=== PATIENT | female | born 1950 | race Caucasian/White ===

== ENCOUNTER 2018-12-16 01:34 | Outpatient (CLI) | payer MEDICARE, BC ==
[2018-12-16 15:29] LABS: #Eosinphils 0.1 thou/uL (0.0-0.7); #Lymphocytes 1.9 thou/uL (1.20-3.40); #Monocytes 0.6 thou/uL (0.11-0.59); #Neutrophils 3.6 thou/uL (1.40-6.50); %Basophils 0.8 % (0.0-1.0); %Eosinophils 0.9 % (0.0-10.0); %Lymphocytes 30.3 % (21.0-51.0); %Monocytes 9.4 % (0.0-10.0); %Neutrophils 58.5 % (42.0-75.0); Hemoglobin 14.4 g/dL (12.0-16.0); Mean Corpuscular HGB CONC 33.3 g/dL (32.0-36.0); Mean Corpuscular Hemoglobin 30.7 pg (27.0-31.0); Mean Corpuscular Volume 92.3 fL (78.0-98.0); Mean Platelet Volume 9.2 fL (7.4-10.4); Platelet Count 208 thou/uL (130-400); RBC Distribution Width 12.6 % (11.5-14.5); Red Blood Cell (RBC) Count 4.69 mill/uL (4.20-5.40); White Blood Cell (WBC) Count 6.1 thou/uL (4.8-10.8)
[2018-12-16 15:31] LABS: Bilirubin Negative (Negative); Blood, Urine Negative (Negative); Clarity CLOUDY (Clear); Glucose, Urine (Dipstick) Negative (Negative); Leukocyte Negative (Negative); Nitrite Positive (Negative); Protein, Urine (Dipstick) Negative (Neg-Trace); Urobilinogen 0.2 mg/dL (0.2-1.0)
[2018-12-16 15:38] LABS: Prothrombin Time 13.6 SEC (12.0-14.7)
[2018-12-16 15:51] LABS: Anion Gap 12 mmol/L (10-20); BUN (Urea Nitrogen) 19 mg/dL (9.8-20.1); Calc. Creatinine Clearance 0 mL/min (70-130); Calcium 9.2 mg/dL (7.8-10.44); Carbon Dioxide 24 mmol/L (23-31); Chloride 108 mmol/L (98-107); Estimated GFR-MDRD 61; Glucose 76 mg/dL (80-115); Potassium 3.9 mmol/L (3.5-5.1); Sodium 140 mmol/L (136-145)
[2018-12-16 16:29] LABS: RBC/HPF None Seen HPF (0-3); Squamous Epithelial 0-3 HPF (0-3); WBC/HPF 0-3 HPF (0-3)
[2018-12-16 16:30] LABS: Bacteria/HPF 2+ HPF (None Seen); Hyaline Casts/LPF NONE SEEN LPF (0-3 Hyaline)
== END 2018-12-16 01:35 | disposition home or self-care (01) ==
LOC: LABBT 01:34
PROVIDERS: ATTEND Orthopaedic Surgery
DX: Z01.818 Encounter for other preprocedural examination (principal); M17.0 Bilateral primary osteoarthritis of knee
CPT/HCPCS: 80048; 81001; 85025; 85610; 87081; 87086; 93005; 93010

== ENCOUNTER 2018-12-20 05:39 | Inpatient (IN) | payer MEDICARE, BC ==
--- NOTE | 2018-12-15 18:52 | HP ---
HISTORY OF PRESENT ILLNESS: The patient is a 68-year-old female with a several year history of progressive problems with both knees, left greater than right. She has had progressive symptoms despite rest, restriction of activities, use of anti-inflammatory medications, and previous cortisone injections. She has had no recent injury, but has had several hard falls over the past 10 years. She is now having problems with day-to-day activities including walking, getting dressed, and sleeping. PAST MEDICAL HISTORY: The patient has history of hypothyroidism secondary to previous hyperthyroidism treated with radiation, varicose veins, and previous foot surgery. CURRENT MEDICATIONS: Include estradiol and levothyroxine. ALLERGIES: SHE HAS NO KNOWN ALLERGIES. FAMILY HISTORY: Otherwise unremarkable. SOCIAL HISTORY: Otherwise unremarkable. REVIEW OF SYSTEMS: Otherwise unremarkable. PHYSICAL EXAMINATION: GENERAL: This is a healthy, heavyset female. HEENT: Unremarkable. NECK: Supple. CHEST: Clear. HEART: Regular rate and rhythm. ABDOMEN: Soft and nontender. PELVIC: Deferred. RECTAL: Deferred. BREAST: Deferred. EXTREMITIES: Pertinent findings related to both knees. There is mild varus deformity, left greater than right. There are scattered venous varicosities. There is tenderness over the medial joint line bilaterally, left greater than right. Range of motion is 0 to 120 degrees bilaterally. There is slight crepitus, left greater than right. There is no instability. NEUROVASCULAR: Intact. DIAGNOSTIC STUDIES: X-rays of both knees reveal [id number] collapse medially on the left knee and medial and lateral joint space narrowing on the right with still some joint space remaining. IMPRESSION: 1. Degenerative arthritis, both knees left symptomatic more than right. 2. History of thyroid replacement. PLAN: Left total knee replacement. The nature of the surgery, length of recovery, and potential complications such as infection, loss of motion, incomplete relief, delayed wound healing, neurovascular injury, thromboembolic phenomena, possible transfusion, and need for revision have been discussed in detail. Job ID: [id number]
[2018-12-16 12:35] VITALS: BMI 42.7
[2018-12-20] MEDS ORDERED: Midazolam HCl 2 mg/2 ml Vial ONE ×2 (06:19→06:21)
[2018-12-20] MEDS ORDERED: Fentanyl 100 MCG/2 ML VIAL ONE ×6 (06:19→10:28)
[2018-12-20] MEDS ORDERED: Sodium Chloride 0.9% 100 ML ONE (06:30)
[2018-12-20] MEDS ORDERED: Tranexamic Acid 1,000 MG/10 ML VIAL ONE ×2 (06:30→09:40)
[2018-12-20] MEDS ORDERED: Tranexamic Acid 1,000 MG in Sodium Chloride 0.9% 100 ML IVPB SCH ×4 (06:30→13:00)
[2018-12-20] MEDS ORDERED: CEFAZOLIN 3 GM in Sodium Chloride 0.9% 100 ML IVPB SCH (06:30)
[2018-12-20] MEDS ORDERED: Bupivacaine/Epinephrine 0.25% 30 ML VIAL ONE (06:43)
[2018-12-20] MEDS ORDERED: Ondansetron PF 4 MG/2 ML Vial IVP PRN ×3 (07:37→12:43)
[2018-12-20] MEDS ORDERED: traMADol HCl 50 MG TAB PO PRN ×3 (07:37→12:43)
[2018-12-20] MEDS ORDERED: Zolpidem Tartrate 5 MG TAB PO PRN ×3 (07:37→12:43)
[2018-12-20] MEDS ORDERED: HYDROcodone/Acetaminophen 10/325 mg Tablet PO PRN ×4 (07:37→12:43)
[2018-12-20] MEDS ORDERED: Promethazine HCl 25 MG/ML VIAL IM PRN ×3 (07:37→10:55)
[2018-12-20] MEDS ORDERED: Ropivacaine HCl/PF 250 ML in Premix Bag 1 BAG NERVE BLCK SCH (07:37)
[2018-12-20] MEDS ORDERED: Fentanyl 100 MCG/2 ML VIAL IV PRN (07:38)
[2018-12-20] MEDS ORDERED: Ondansetron HCl/PF 4 MG/2 ML Vial IVP PRN (09:38)
[2018-12-20] MEDS ORDERED: Promethazine HCl 25 MG/ML VIAL SLOW IVP PRN ×2 (09:38→12:43)
--- NOTE | 2018-12-20 09:57 | RAD ---
2 views left knee: 12/20/2018 COMPARISON: None HISTORY: Status post left knee arthroplasty FINDINGS: There is postoperative fluid and gas anterior to the patella and within the suprapatellar b ursa. Tibial and femoral components appear unremarkable. No fracture or evidence of dislocation. There is postoperative change involving the posterior aspect of the patella. IMPRESSION: Radiographic evidence of recent left total knee arthroplasty.
[2018-12-20] MEDS ORDERED: Ketorolac Tromethamine 30 MG/ML VIAL ONE (10:21)
[2018-12-20] MEDS ORDERED: Acetaminophen 1,000 MG in Premix Bag 1 BAG IVPB SCH (10:30)
--- NOTE | 2018-12-20 10:51 | OP ---
DATE OF PROCEDURE: 12/20/2018 FLORAL DECORATOR: Haley Amaya PA-C ANESTHESIA: General plus adductor canal and sciatic nerve blocks. PREOPERATIVE DIAGNOSIS: Degenerative arthritis, left knee. POSTOPERATIVE DIAGNOSIS: Degenerative arthritis, left knee. PROCEDURE PERFORMED: Left total knee replacement with computer-assisted navigation with cemented Farideh Triathlon components (#5 femoral component, #4 primary tibial base plate with 11 mm CS plastic insert, and all plastic A32 patellar component). DESCRIPTION OF PROCEDURE: After satisfactory anesthesia was induced in supine position, sequential compression device was placed on the nonoperative leg throughout the procedure. The left leg was then prepped and draped in a routine sterile fashion. The leg was elevated and exsanguinated with an Esmarch bandage. The tourniquet was inflated to 350 mmHg. A gently curved medial parapatellar incision was made, carried down to the subcutaneous tissues and bleeding points controlled with the Bovie cautery. Medial parapatellar arthrotomy was performed of the patella, this was carried laterally and portion of the fat pad were excised for exposure. There was marked degenerative arthritis in the knee, especially medially with large areas of exposed bone. Meniscal remnants and osteophytes were removed. Using the [employer] pinless navigation system and the appropriate guides, the distal femoral and proximal tibial articular surfaces were excised to accept the trial components. It was felt that #5 femoral component, #4 tibial base plate with 11 mm CS plastic insert gave appropriate size, fit, stability, and correction of the preoperative deformity. The patellar articular surface was excised to accept an all plastic A32 patellar component. There was good range of motion and good patellar tracking. The trial components were removed. The knee was copiously irrigated with pulsatile lavage. The bony surface was thoroughly cleaned and dried. The permanent components were then cemented in a single stage using one package of cement premixed with 1 g of tobramycin powder. Excess cement was removed. There was again good fit and stability of the components. The knee was then copiously irrigated. The skin was then injected with 30 mL of 0.25% Marcaine with epinephrine. The medial retinaculum and quadriceps mechanism was closed with interrupted #2 Vicryl and a running #2 Quill. Subcutaneous tissues were closed with a running 0 Quill suture and the skin closed with running subcuticular 3-0 Monoderm and SurgiSeal skin adhesive. Sterile bulky compressive dressing was applied. The tourniquet deflated after 89 minutes. The foot promptly pinked up, and a sequential compression device was placed on the operated leg. She was awakened and taken to recovery room in stable condition. There were no apparent intraoperative complications. ESTIMATED BLOOD LOSS: Less than 100 mL. Job ID: [id number]
[2018-12-20] MEDS ORDERED: diphenhydrAMINE 50 MG/ML VIAL IM/IV PRN (10:55)
[2018-12-20] MEDS ORDERED: diphenhydrAMINE 25 MG CAP PO PRN ×2 (10:55→12:43)
[2018-12-20] MEDS ORDERED: fentaNYL Citrate/PF 2,000 MCG in Sodium Chloride 0.9% 60 ML IV PRN (10:55)
[2018-12-20] MEDS ORDERED: Naloxone HCl 0.4 mg/ml Vial IV PRN (10:55)
[2018-12-20] MEDS ORDERED: Ketorolac Tromethamine 30 MG/ML VIAL IVP SCH ×4 (12:00→16:30)
[2018-12-20] MEDS ORDERED: Fentanyl 100 MCG/2 ML VIAL SLOW IVP PRN ×2 (12:43)
[2018-12-20] MEDS ORDERED: Acetaminophen 325 MG TAB PO PRN (12:43)
[2018-12-20] MEDS: CEFAZOLIN 3 GM in Premix Bag 1 BAG IVPB SCH ×2 (14:26→21:33)
[2018-12-20] MEDS: Sodium Chloride 0.9% 1,000 ML IV SCH ×2 (14:27→21:53)
[2018-12-20] MEDS: Ketorolac Tromethamine 30 MG/ML VIAL IVP SCH ×2 (17:40→23:19)
[2018-12-20] MEDS: Ferrous Gluconate 324 MG TAB PO SCH (20:27)
[2018-12-20] MEDS: Aspirin 81 mg Enteric Coated Tablet PO SCH (20:27)
[2018-12-20] MEDS: Senokot S 8.6-50 MG TAB PO SCH (20:27)
--- NOTE | 2018-12-21 01:07 | CON ---
DATE OF CONSULTATION: 12/20/[address] Hallman for medical management. HISTORY OF PRESENT ILLNESS: The patient is a 68-year-old female, who is freshly postop left knee replacement for degenerative joint disease that has failed conservative therapy. The patient is doing amazingly well with no significant pain and no post anesthesia affect at the moment. PAST MEDICAL HISTORY: Notable for tubal ligation in 1979, foot surgery in the s. She had some cosmetic surgery related to some exophthalmos of the left eye. The patient had a history of hyperthyroidism treated with radioiodine ablation resulting in chronic hypothyroidism. She had the above-mentioned associated exophthalmos of the left eye, which interestingly occurred about 5 years after her hyperthyroidism. FAMILY HISTORY: Mother had some coronary artery disease, myelodysplastic syndrome, and thyroid disease. Father had emphysema. SOCIAL HISTORY: The patient occasionally drinks minimal alcohol. Quit smoking in . Denies drug use. She is . She is full code and her would be her surrogate decision maker should that become necessary. HOME MEDICATIONS: 1. Levothyroxine 125 mcg daily. 2. Estradiol vaginal application. 3. Ibuprofen p.r.n. 4. Acetaminophen p.r.n. ALLERGIES: NONE. PHYSICAL EXAMINATION: VITAL SIGNS: Temperature 97.6, pulse 60, respirations 18, O2 saturation 97% on room air, BP 121/70. GENERAL APPEARANCE: Age-appropriate female, in no distress. Awake, alert, oriented, pleasant, and cooperative. HEENT: PERRL. No acute lesions. NECK: Supple and symmetric. No lymphadenopathy, JVD, or bruits. HEART: Regular rate and rhythm. No murmurs, gallops, or rubs. LUNGS: Clear to auscultation bilaterally. No wheezes or rales. ABDOMEN: Soft, nontender, and nondistended. Positive bowel sounds. No masses. No organomegaly. EXTREMITIES: No cyanosis, clubbing, or edema. IMPRESSION AND PLAN: 1. Degenerative joint disease, postop total left knee replacement. 2. Hypothyroidism, iatrogenic secondary to radioiodine ablation. Treatment for prior hyperthyroidism. The patient is back on her usual home dose of Synthroid, appears to be with that. 3. The patient appears to be medically stable. We will follow at a distance. Job ID: [id number]
[2018-12-21 04:39] LABS: Hemoglobin 11.7 g/dL (12.0-16.0); Mean Corpuscular HGB CONC 33.3 g/dL (32.0-36.0); Mean Corpuscular Hemoglobin 30.6 pg (27.0-31.0); Platelet Count 164 thou/uL (130-400); RBC Distribution Width 12.4 % (11.5-14.5); Red Blood Cell (RBC) Count 3.83 mill/uL (4.20-5.40); White Blood Cell (WBC) Count 10.4 thou/uL (4.8-10.8)
[2018-12-21] MEDS: Ketorolac Tromethamine 30 MG/ML VIAL IVP SCH ×4 (05:31→23:46)
[2018-12-21] MEDS: Levothyroxine Sodium 125 MCG TAB PO SCH (05:31)
[2018-12-21] MEDS: Aspirin 81 mg Enteric Coated Tablet PO SCH ×2 (08:08→21:09)
[2018-12-21] MEDS: Ferrous Gluconate 324 MG TAB PO SCH ×2 (08:08→21:09)
[2018-12-21] MEDS: Multivitamin W/ Minerals 1 TAB PO SCH (08:08)
[2018-12-21] MEDS: Senokot S 8.6-50 MG TAB PO SCH ×2 (08:08→21:09)
[2018-12-21] MEDS: Sodium Chloride 0.9% 1,000 ML IV SCH ×2 (08:17→20:03)
[2018-12-21] MEDS ORDERED: Estradiol 0.01% Vaginal Cream 42.5 gm Tube VAG SCH (09:00)
[2018-12-21] MEDS ORDERED: HYDROcodone/Acetaminophen 10/325 mg Tablet PO PRN (10:42)
[2018-12-21] MEDS ORDERED: traMADol HCl 50 MG TAB PO PRN ×2 (10:43)
[2018-12-21] MEDS ORDERED: Fentanyl 100 MCG/2 ML VIAL SLOW IVP PRN (10:43)
[2018-12-21] MEDS: HYDROcodone/Acetaminophen 10/325 mg Tablet PO PRN (21:10)
[2018-12-22] MEDS: Sodium Chloride 0.9% 1,000 ML IV SCH (03:17)
[2018-12-22] MEDS: Levothyroxine Sodium 125 MCG TAB PO SCH (05:41)
[2018-12-22] MEDS: Ketorolac Tromethamine 30 MG/ML VIAL IVP SCH ×2 (05:42→12:34)
[2018-12-22] MEDS: Ferrous Gluconate 324 MG TAB PO SCH (08:25)
[2018-12-22] MEDS: Aspirin 81 mg Enteric Coated Tablet PO SCH (08:25)
[2018-12-22] MEDS: Multivitamin W/ Minerals 1 TAB PO SCH (08:26)
[2018-12-22] MEDS: Senokot S 8.6-50 MG TAB PO SCH (08:26)
[2018-12-22 11:38] VITALS: BP 122/68; TEMP 98.4
[2018-12-22] MEDS: HYDROcodone/Acetaminophen 10/325 mg Tablet PO PRN (14:09)
== END 2018-12-22 15:03 | disposition home or self-care (01) | DRG 470 ==
LOC: SDC 05:39 → SJJU 07:10
PROVIDERS: ADMIT Orthopaedic Surgery; ATTEND Orthopaedic Surgery
PROC: 0SRD0J9 Replacement of Left Knee Joint with Synthetic Substitute, Cemented, Open Approach (ICD-10-PCS; principal; 2018-12-20)
DX: M17.0 Bilateral primary osteoarthritis of knee (principal); E03.9 Hypothyroidism, unspecified; Z79.899 Other long term (current) drug therapy; Z98.51 Tubal ligation status; Z87.891 Personal history of nicotine dependence
CPT/HCPCS: 36415; 85027; 86850; 86900; 86901; C1713; C1776; J0131; J0690; J1885; J2250; J2795; J3010; J3370; J3490; J7050

== ENCOUNTER 2021-01-14 11:15 | Inpatient (IN) | payer MEDICARE, BC ==
[2021-02-15 14:05] VITALS: BMI 42.0
[2021-02-19] MEDS ORDERED: Tranexamic Acid 1,000 MG/10 ML VIAL ONE (07:58)
[2021-02-19] MEDS ORDERED: VANCOMYCIN 2 GRAM/400 ML BAG 2 GM in Premix Bag 1 BAG IVPB SCH ×3 (08:15→20:00)
[2021-02-19] MEDS ORDERED: Fentanyl 100 MCG/2 ML VIAL ONE ×4 (08:19→11:58)
[2021-02-19] MEDS ORDERED: Midazolam HCl 2 mg/2 ml Vial ONE (08:19)
[2021-02-19] MEDS ORDERED: Bupivacaine 0.25% HCL 30 ML VIAL ONE (09:14)
[2021-02-19] MEDS ORDERED: EPINEPHrine 1 MG/ML AMP ONE (09:14)
[2021-02-19] MEDS ORDERED: Ropivacaine 2% HCl/PF (20 MG/10 ML VIAL) ONE (09:39)
[2021-02-19] MEDS ORDERED: Lidocaine 1% PF 5 ML VIAL ONE (09:39)
[2021-02-19] MEDS ORDERED: Ketorolac Tromethamine 30 MG/ML VIAL ONE (09:39)
[2021-02-19] MEDS ORDERED: Ondansetron PF 4 MG/2 ML Vial ONE (09:39)
[2021-02-19] MEDS ORDERED: ePHEDrine 50 MG/ML VIAL ONE (09:39)
[2021-02-19] MEDS ORDERED: Dexamethasone 20 MG/5 ML VIAL ONE (09:39)
[2021-02-19] MEDS ORDERED: Bupivacaine HCl 0.5%/Epinephrine 1:200,000/PF 30 ml Vial ONE (09:39)
[2021-02-19] MEDS ORDERED: PROPOFOL 200 MG/20 ML VIAL ONE (09:39)
[2021-02-19] MEDS ORDERED: Promethazine HCl 25 MG/ML VIAL IM PRN ×3 (10:31→11:53)
[2021-02-19] MEDS ORDERED: Ondansetron HCl/PF 4 MG/2 ML Vial IVP PRN (10:31)
[2021-02-19] MEDS ORDERED: Promethazine HCl 25 MG/ML VIAL IVPB PRN (10:31)
[2021-02-19] MEDS ORDERED: Fentanyl 100 MCG/2 ML VIAL IV PRN (11:21)
[2021-02-19] MEDS ORDERED: Zolpidem Tartrate 5 MG TAB PO PRN ×2 (11:30→11:53)
[2021-02-19] MEDS ORDERED: Ondansetron PF 4 MG/2 ML Vial IVP PRN ×2 (11:30→11:53)
[2021-02-19] MEDS ORDERED: Ropivacaine HCl/PF 250 ML in Premix Bag 1 BAG NERVE BLCK SCH (11:30)
[2021-02-19] MEDS ORDERED: HYDROcodone/Acetaminophen 10/325 mg Tablet PO PRN ×3 (11:30→11:53)
[2021-02-19] MEDS ORDERED: traMADol HCl 50 MG TAB PO PRN ×3 (11:30→11:53)
[2021-02-19] MEDS ORDERED: Fentanyl 100 MCG/2 ML VIAL SLOW IVP PRN ×2 (11:53)
[2021-02-19] MEDS ORDERED: Acetaminophen 325 MG TAB PO PRN (11:53)
[2021-02-19] MEDS ORDERED: Ketorolac Tromethamine 30 MG/ML VIAL IVP PRN (11:53)
[2021-02-19] MEDS ORDERED: diphenhydrAMINE 25 MG CAP PO PRN (11:53)
[2021-02-19] MEDS: Dextrose 5 %-0.45 % NaCl 1,000 ML IV SCH ×2 (15:30→21:10)
[2021-02-19] MEDS: Ketorolac Tromethamine 30 MG/ML VIAL IVP SCH ×3 (15:31→23:50)
[2021-02-19] MEDS: CEFAZOLIN 2 GM in Premix Bag 1 BAG IVPB SCH ×2 (16:58→23:52)
[2021-02-19] MEDS: Aspirin 81 mg Enteric Coated Tablet PO SCH (21:06)
[2021-02-19] MEDS: Losartan 25 MG TAB PO SCH (21:06)
[2021-02-20] MEDS: Levothyroxine Sodium 125 MCG TAB PO SCH (05:30)
[2021-02-20] MEDS: Ketorolac Tromethamine 30 MG/ML VIAL IVP SCH ×3 (05:31→18:42)
[2021-02-20 07:02] LABS: Hemoglobin 11.4 g/dL (12.0-16.0); Mean Corpuscular HGB CONC 33.3 g/dL (32.0-36.0); Mean Corpuscular Hemoglobin 31.2 pg (27.0-31.0); Mean Corpuscular Volume 93.6 fL (78.0-98.0); Mean Platelet Volume 9.3 fL (7.4-10.4); Platelet Count 175 thou/uL (130-400); RBC Distribution Width 12.5 % (11.5-14.5); Red Blood Cell (RBC) Count 3.66 mill/uL (4.20-5.40); White Blood Cell (WBC) Count 10.9 thou/uL (4.8-10.8)
[2021-02-20] MEDS: Aspirin 81 mg Enteric Coated Tablet PO SCH ×2 (08:46→21:59)
[2021-02-20] MEDS: Senokot S 8.6-50 MG TAB PO SCH ×2 (08:46→21:59)
[2021-02-20] MEDS: HYDROcodone/Acetaminophen 10/325 mg Tablet PO PRN ×2 (08:47→18:43)
[2021-02-20] MEDS: Dextrose 5 %-0.45 % NaCl 1,000 ML IV SCH ×2 (08:48→18:40)
[2021-02-20] MEDS: Mupirocin 2% Ointment 22 GM Tube TOP SCH (08:49)
[2021-02-20] MEDS: Ferrous Gluconate 324 MG TAB PO SCH ×2 (08:49→22:00)
[2021-02-20] MEDS: Multivitamin W/ Minerals 1 TAB PO SCH (08:49)
[2021-02-20] MEDS: Losartan 25 MG TAB PO SCH (21:59)
[2021-02-21] MEDS: Ketorolac Tromethamine 30 MG/ML VIAL IVP SCH ×2 (00:30→05:57)
[2021-02-21] MEDS: Dextrose 5 %-0.45 % NaCl 1,000 ML IV SCH ×2 (04:30→13:48)
[2021-02-21] MEDS: Levothyroxine Sodium 125 MCG TAB PO SCH (05:58)
[2021-02-21] MEDS: HYDROcodone/Acetaminophen 10/325 mg Tablet PO PRN (06:05)
[2021-02-21 06:10] LABS: Mean Corpuscular HGB CONC 33.3 g/dL (32.0-36.0); Mean Corpuscular Volume 93.3 fL (78.0-98.0); Mean Platelet Volume 8.9 fL (7.4-10.4); Platelet Count 156 thou/uL (130-400); RBC Distribution Width 12.6 % (11.5-14.5); Red Blood Cell (RBC) Count 3.54 mill/uL (4.20-5.40); White Blood Cell (WBC) Count 9.2 thou/uL (4.8-10.8)
[2021-02-21] MEDS: Ferrous Gluconate 324 MG TAB PO SCH (09:59)
[2021-02-21] MEDS: Multivitamin W/ Minerals 1 TAB PO SCH (09:59)
[2021-02-21] MEDS: Senokot S 8.6-50 MG TAB PO SCH (09:59)
[2021-02-21] MEDS: Aspirin 81 mg Enteric Coated Tablet PO SCH (10:05)
[2021-02-21] MEDS: Mupirocin 2% Ointment 22 GM Tube TOP SCH (10:08)
[2021-02-21 16:15] VITALS: BP 122/78; TEMP 98.2
== END 2021-02-21 15:51 | disposition home or self-care (01) | DRG 470 ==
LOC: SURG A 02-19 06:21 → EDSTATUS 02-19 11:15 → SJJU 02-19 13:03
PROVIDERS: ADMIT Orthopaedic Surgery; ATTEND Orthopaedic Surgery
PROC: 0SRC0J9 Replacement of Right Knee Joint with Synthetic Substitute, Cemented, Open Approach (ICD-10-PCS; principal; 2021-02-19)
DX: M17.11 Unilateral primary osteoarthritis, right knee (principal); Z68.41 Body mass index [BMI] 40.0-44.9, adult; Z20.822 Contact with and (suspected) exposure to COVID-19; M21.161 Varus deformity, not elsewhere classified, right knee; M21.061 Valgus deformity, not elsewhere classified, right knee; I10 Essential (primary) hypertension; E03.9 Hypothyroidism, unspecified; E66.01 Morbid (severe) obesity due to excess calories; Z87.891 Personal history of nicotine dependence; Z79.890 Hormone replacement therapy; Z79.899 Other long term (current) drug therapy
CPT/HCPCS: 36415; 85027; C1713; C1776; J0171; J0690; J1100; J1885; J2250; J2405; J2704; J2795; J3010; J3370; J3490; S0020

== ENCOUNTER 2021-05-02 10:14 | Outpatient (CLI) | payer MEDICARE, BC | END 2021-05-02 10:15 | disposition home or self-care (01) | LOC: BICMAMMO 10:14 | PROVIDERS: ATTEND Family Medicine | DX: Z13.820 Encounter for screening for osteoporosis (principal); N95.9 Unspecified menopausal and perimenopausal disorder; M85.851 Other specified disorders of bone density and structure, right thigh; M85.852 Other specified disorders of bone density and structure, left thigh | CPT/HCPCS: 77080 ==

== ENCOUNTER 2023-12-18 10:35 | Outpatient (CLI) | payer MEDICARE | END 2023-12-18 10:36 | disposition home or self-care (01) | LOC: BICMAMMO 10:35 | PROVIDERS: ATTEND Family Medicine | DX: Z12.31 Encounter for screening mammogram for malignant neoplasm of breast (principal); Z80.3 Family history of malignant neoplasm of breast | CPT/HCPCS: 77063; 77067 ==

== ENCOUNTER 2025-02-15 13:27 | Outpatient (CLI) | payer MEDICARE | END 2025-02-15 13:28 | disposition home or self-care (01) | LOC: BICRAD 13:27 | PROVIDERS: ATTEND Family Medicine | DX: M25.572 Pain in left ankle and joints of left foot (principal); M79.672 Pain in left foot; M19.172 Post-traumatic osteoarthritis, left ankle and foot ==

== ENCOUNTER 2025-05-24 13:21 | Outpatient (CLI) | payer MEDICARE | END 2025-05-24 13:22 | disposition home or self-care (01) | LOC: BICMAMMO 13:21 | PROVIDERS: ATTEND Family Medicine | DX: Z78.0 Asymptomatic menopausal state (principal); M85.851 Other specified disorders of bone density and structure, right thigh; M85.852 Other specified disorders of bone density and structure, left thigh | CPT/HCPCS: 77080 ==